=== PATIENT | female | born 2000 ===

== ENCOUNTER 2022-04-19 01:40 | Outpatient (CLI) | payer OTHER, SELFPAY ==
[2022-04-19 13:38] LABS: ALT 49 U/L (14-59); AST 36 U/L (15-37); Triglyceride 74 mg/dL (<150)
== END 2022-04-19 01:41 | disposition home or self-care (01) ==
LOC: LBO 01:41
PROVIDERS: Visit Provider Dermatology
DX: Z79.899 Other long term (current) drug therapy (principal)
CPT/HCPCS: 36415; 84450; 84460; 84478